=== PATIENT | female | born 1970 | race Caucasian/White ===

== ENCOUNTER → 2018-04-24 14:11 | Outpatient (CLI) | payer MEDICAID, OTHER, SELFPAY ==
--- NOTE | 2018-04-24 | DI.US.S_ITS ---
ULTRASOUND OF LEFT BREAST: 04/24/2018 CLINICAL: Palpable left breast lump and focal pain. Comparison is made to exam dated: 04/24/2018 [facility]. Real-time and Doppler ultrasound of the left breast were performed. Segal scale images of the real-time examination were reviewed. Targeted ultrasound was performed in the region of the patient's reported palpable abnormality in the left breast as indicated by the patient at the time of the exam. No underlying breast mass or abnormality is identified. IMPRESSION: NEGATIVE Negative ultrasound evaluation of the area of the patient's reported palpable abnormality. Recommend clinical follow-up for further evaluation and management of the patient's reported symptoms. Return to annual screening mammography is also recommended. This exam was interpreted at Station ID: [id number]. Electronically Signed By: Win Burnham M.D. ecl/:04/24/2018 18:51:00 letter sent: Clinical Evaluation Ultrasound BI-RADS: 1 Negative
--- NOTE | 2018-04-24 | DI.MG.S_ITS ---
BILATERAL DIGITAL DIAGNOSTIC MAMMOGRAM 3D/2D: 04/24/2018 CLINICAL: Left breast lump. Baseline exam. No prior exams were available for comparison. The tissue of both breasts is heterogeneously dense. This may lower the sensitivity of mammography. There is a triangular marker overlying the skin of the lower inner left breast at the site of the patient's reported palpable abnormality. There is no underlying mammographic abnormality. There is a circular mole marker overlying the superior axilla/chest on the L MLO view. Possible asymmetry in the far medial right breast on RCC view resolves on subsequent additional views. No significant masses, calcifications, or other findings are seen in either breast. IMPRESSION: INCOMPLETE: NEEDS ADDITIONAL IMAGING EVALUATION No mammographic abnormality to correlate with the site of the patient's reported focal palpable abnormality. Targeted diagnostic ultrasound recommended for further evaluation, which will be performed immediately following this exam. This exam was interpreted at Station ID: [id number]. NOTE: For mammograms, a report in lay terms will be sent to the patient. Approximately 15% of breast malignancies will not be visualized mammographically. In the management of a palpable breast mass, a negative mammogram must not discourage biopsy of a clinically suspicious lesion. Electronically Signed By: Win Burnham M.D. ecl/:04/24/2018 18:45:04 ACR BI-RADS Category 0: Incomplete [id number]
== END ==
PROVIDERS: Visit Provider Nurse Practitioner Obstetrics & Gynecology
DX: R92.8 Other abnormal and inconclusive findings on diagnostic imaging of breast (principal); N63.24 Unspecified lump in the left breast, lower inner quadrant
CPT/HCPCS: 76642; 77066; G0279